=== PATIENT | male | born 1965 | race African-American/Black ===

== ENCOUNTER 2016-10-25 16:18 | Inpatient (IN) | payer MEDICAID ==
[~2016-10-25] VITALS: Ht 182.9 cm; Wt 67.6 kg
[2016-10-25] MEDS ORDERED: MORPHINE SULFATE 4 MG/ML CPJ (NOT FOR IM USE) IV STA (17:26)
[2016-10-25] MEDS ORDERED: ONDANSETRON HCL 4MG/2ML VIAL IV STA (17:26)
[2016-10-25] MEDS ORDERED: SODIUM CHLORIDE 0.9% 500 ML IV ONE (17:26)
[2016-10-25] MEDS ORDERED: KETOROLAC 30MG/ML VIAL IV STA (17:26)
[2016-10-25] MEDS ORDERED: MAGNESIUM/ALUMINUM HYDROXIDE/SIMETHICONE 30ML UDC PO STA (17:26)
[2016-10-25 17:43] LABS: BASOPHILS % 0.7 % (0.0-2.0); EOSINOPHILS % 2.5 % (0.0-5.0); HEMATOCRIT. 52.8 % (42.0-52.0); HEMOGLOBIN. 18.8 g/dL (14.0-18.0); LYMPHOCYTES % 36.5 % (20.0-50.0); MEAN CORPUSCULAR HEMOGLOBIN 34.5 pg (28.0-32.0); MEAN PLATELET VOLUME 8.2 fl (7.4-10.4); MONOCYTES % 9.2 % (2.0-8.0); NEUTROPHILS % 51.1 % (40.0-76.0); PLATELET 166 x1000/uL (130-400); RED BLOOD CELL COUNT 5.44 mill/uL (4.7-6.1); RED CELL DISTRIBUTION WIDTH 14.2 % (11.6-14.6)
[2016-10-25 17:52] LABS: CHLORIDE 103 mEq/L (98-107)
[2016-10-25 17:55] LABS: D-DIMER 0.34 mg/L FEU (<0.50); INR 1.1; PARTIAL THROMBOPLASTIN TIME 30.9 sec (24.0-34.0); PROTHROMBIN TIME 11.5 sec
[2016-10-25 17:58] LABS: CARBON DIOXIDE 28 mEq/L (21-32); ETHANOL BLOOD < 10 mg/dL
[2016-10-25 18:05] LABS: TROPONIN I 0.59 ng/mL (0.00-0.04)
[2016-10-25] MEDS ORDERED: GUAIFENESIN 200MG/10ML SUGAR FREE UDC PO PRN (18:45)
[2016-10-25] MEDS ORDERED: ACETAMINOPHEN 650MG SUPP PR PRN (18:45)
[2016-10-25] MEDS ORDERED: LORAZEPAM 0.5MG TABLET PO PRN (18:45)
[2016-10-25] MEDS ORDERED: ENOXAPARIN 60MG/0.6ML SYR SUBCUT ONE (18:45)
[2016-10-25] MEDS ORDERED: HYDROCODONE/APAP 7.5/325MG 1 TAB TABLET PO PRN (18:45)
[2016-10-25] MEDS ORDERED: DIPHENHYDRAMINE 50MG/ML VIAL IV PRN (18:45)
[2016-10-25] MEDS ORDERED: ACETAMINOPHEN 650MG/20.3ML UDC GT PRN (18:45)
[2016-10-25] MEDS ORDERED: MAGNESIUM/ALUMINUM HYDROXIDE/SIMETHICONE 30ML UDC PO PRN (18:45)
[2016-10-25] MEDS ORDERED: ACETAMINOPHEN 325MG TABLET PO PRN (18:45)
[2016-10-25] MEDS ORDERED: CLONIDINE 0.2MG TABLET PO ONE (18:45)
[2016-10-25] MEDS ORDERED: DOCUSATE SODIUM 100MG CAPSULE PO PRN (18:45)
[2016-10-25] MEDS ORDERED: IPRATROPIUM/ALBUTEROL 0.5-3(2.5)MG/3ML NEB INH PRN (18:45)
[2016-10-25] MEDS ORDERED: ONDANSETRON HCL 4MG/2ML VIAL IV PRN (18:45)
[2016-10-25] MEDS: METOPROLOL TARTRATE 25MG TABLET PO SCH (19:16)
[2016-10-25] MEDS ORDERED: NA PHOS,M-B/NA PHOS,DI-BA ENEMA 118ML PR PRN (20:00)
[2016-10-25] MEDS: HYDROCODONE/ACETAMINOPHEN 5/325MG TABLET PO PRN (20:46)
[2016-10-25] MEDS: CLONIDINE 0.1MG TABLET PO PRN (20:46)
[2016-10-25] MEDS: SODIUM CHLORIDE 0.9% INJ 3ML FLUSH IVF SCH (22:00)
[2016-10-25 22:01] VITALS: BP 150/92
[2016-10-25 22:02] VITALS: BP 177/106
[2016-10-26] VITALS: BP 128/86
[2016-10-26 02:00] VITALS: BP 136/89
[2016-10-26 04:01] VITALS: BP 163/102
[2016-10-26] MEDS: CLONIDINE 0.1MG TABLET PO PRN (04:25)
[2016-10-26] MEDS: SODIUM CHLORIDE 0.9% INJ 3ML FLUSH IVF SCH (05:58)
[2016-10-26 06:00] VITALS: BP 166/103
[2016-10-26] MEDS: HYDROCODONE/ACETAMINOPHEN 5/325MG TABLET PO PRN (06:00)
[2016-10-26 06:17] LABS: CLARITY URINE CLEAR (CLEAR); COLOR URINE DARK YELLOW (YELLOW); GLUCOSE URINE NEGATIVE (NEGATIVE); KETONES URINE TRACE (NEGATIVE); LEUKOCYTE ESTERASE URINE 1+ (NEGATIVE); NITRITE URINE NEGATIVE (NEGATIVE); OCCULT BLOOD URINE 1+ (NEGATIVE); PROTEIN URINE TRACE (NEGATIVE); SPECIFIC GRAVITY URINE 1.022 (1.005-1.030)
[2016-10-26 06:21] LABS: EOSINOPHILS % 5.2 % (0.0-5.0); HEMATOCRIT. 50.7 % (42.0-52.0); HEMOGLOBIN. 17.6 g/dL (14.0-18.0); LYMPHOCYTES % 43.7 % (20.0-50.0); MEAN CORPUSCULAR HEMOGLOBIN 33.9 pg (28.0-32.0); NEUTROPHILS % 40.1 % (40.0-76.0); PLATELET 156 x1000/uL (130-400); RED BLOOD CELL COUNT 5.17 mill/uL (4.7-6.1); RED CELL DISTRIBUTION WIDTH 14.4 % (11.6-14.6)
[2016-10-26 07:02] LABS: *AMPHETAMINES SCREEN URINE NEGATIVE (NEGATIVE); *BARBITURATES SCREEN URINE NEGATIVE (NEGATIVE); *BENZODIAZEPINES SCREEN URINE NEGATIVE (NEGATIVE); *COCAINE SCREEN URINE NEGATIVE (NEGATIVE); CANNABINOID URINE SCREEN NEGATIVE (NEGATIVE); METHADONE URINE SCREEN NEGATIVE (NEGATIVE); OPIATES URINE SCREEN PRESUMTIVE POSITIVE (NEGATIVE); PHENCYCLIDINE URINE SCREEN NEGATIVE (NEGATIVE)
[2016-10-26 07:20] LABS: CARBON DIOXIDE 28 mEq/L (21-32); CHLORIDE 104 mEq/L (98-107); LDL CHOLESTEROL 79 mg/dL (5-100)
[2016-10-26 07:35] LABS: CREATINE KINASE 120 IU/L (39-308); HDL CHOLESTEROL 29 mg/dL (40-59)
[2016-10-26 08:00] VITALS: BP 131/91
[2016-10-26] MEDS: METOPROLOL TARTRATE 25MG TABLET PO SCH (09:00)
[2016-10-26 10:00] VITALS: BP 143/94
[2016-11-01] MEDS ORDERED: LIP40 PO (10:04)
[2016-11-01] MEDS ORDERED: LISI10TA5 PO (10:04)
[2016-11-01] MEDS ORDERED: CLOP75TA15 PO (10:04)
[2016-11-01] MEDS ORDERED: AMLO10TA80 PO (10:04)
[2016-11-01] MEDS ORDERED: ASPI-1159 PO (10:04)
== END 2016-10-26 10:30 | disposition left against medical advice (07) | DRG 243 ==
LOC: EDBEDREQ 18:45 → EDBEDREQSVC 18:45 → EDBEDREQ 18:46 → ENRESERV 19:20 → CANRESERV 19:20 → EDBEDREQSVC 19:50 → CANRESERV 19:51 → ENRESERV 19:51 → ER 19:53 → 3WST 19:54 → ENRESERV 19:55 → EDBEDREQSVC 19:55 → 3WST 20:39
PROVIDERS: ADMIT Family Medicine; ATTEND Family Medicine
DX: K21.9 Gastro-esophageal reflux disease without esophagitis (principal); I10 Essential (primary) hypertension; F17.200 Nicotine dependence, unspecified, uncomplicated; R07.9 Chest pain, unspecified; E78.00 Pure hypercholesterolemia, unspecified; J45.909 Unspecified asthma, uncomplicated; Z88.6 Allergy status to analgesic agent; Z71.6 Tobacco abuse counseling
CPT/HCPCS: 36415; 71010; 80053; 80061; 80305; 81001; 82550; 83690; 83880; 84443; 84484; 85025; 85379; 85610; 85730; 93005; 93306; 96361; 96372; 96374; 96375; 99285; 99406; G0482; J1650; J1885; J2270; J2405; J7030; J7040

== ENCOUNTER 2021-11-11 14:13 | Emergency (ER) | payer MEDICAID ==
[~2021-11-11] VITALS: Ht 182.9 cm; Wt 83.0 kg
[~2021-11-11 14:13] MED LIST: AMLO10TA80 PO; ASPI-1497 PO; CLOP75TA15 PO; LIP40 PO; LISI10TA26 PO
[2021-11-11] MEDS ORDERED: ACETAMINOPHEN WITH CODEINE 300/30MG TABLET PO STA (15:02)
[2021-11-11 15:56] VITALS: BP 115/86
[2021-11-11] MEDS ORDERED: ACET-2708 PO (16:49)
== END 2021-11-11 17:12 | disposition home or self-care (01) ==
LOC: ER 14:13
DX: S16.1XXA Strain of muscle, fascia and tendon at neck level, initial encounter (principal); V49.59XA Passenger injured in collision with other motor vehicles in traffic accident, initial encounter; Y93.89 Activity, other specified; Y92.89 Other specified places as the place of occurrence of the external cause; Y99.8 Other external cause status; M25.512 Pain in left shoulder; M54.50 Low back pain, unspecified; I10 Essential (primary) hypertension; Z98.890 Other specified postprocedural states
CPT/HCPCS: 72110; 73030; 99284